=== PATIENT | female | born 1985 | race Hispanic/Latino ===

== ENCOUNTER 2018-07-11 18:34 | Emergency (ER) | payer OTHER ==
[2018-07-11 19:20] LABS: HCG,QUAL RESULT NEGATIVE (NEGATIVE)
[2018-07-11 19:21] LABS: APPEARANCE,URINE Clear (CLEAR); BILIRUBIN,URINE Negative (NEGATIVE); COLOR,URINE Yellow (YELLOW); GLUCOSE, URINE (UA) Negative (NEGATIVE); KETONES,URINE Negative (NEGATIVE); LEUKOCYTE ESTERASE ,URINE Small (NEGATIVE); NITRATE,URINE Negative (NEGATIVE); OCCULT BLOOD,URINE Moderate (NEGATIVE); PH,URINE 6.5 (5.0-8.0); PROTEIN,URINE Negative (NEGATIVE)
[2018-07-11 19:38] LABS: BACTERIA,URINE Rare /HPF (None Seen)
== END 2018-07-11 19:51 | disposition home or self-care (01) ==
LOC: EDH 18:34
DX: N39.0 Urinary tract infection, site not specified (principal); M54.5 Low back pain; G89.29 Other chronic pain; Z98.890 Other specified postprocedural states; Z72.0 Tobacco use
CPT/HCPCS: 81001; 81025

== ENCOUNTER 2021-04-25 18:35 | Emergency (ER) | payer OTHER ==
[~2021-04-25] VITALS: Ht 160 cm; Wt 83.9 kg
[2021-04-25 18:39] VITALS: BP 116/85
[2021-04-25 21:56] LABS: APPEARANCE,URINE Cloudy (CLEAR); BILIRUBIN,URINE Small (NEGATIVE); COLOR,URINE Dark Yellow (YELLOW); GLUCOSE, URINE (UA) Negative (NEGATIVE); KETONES,URINE 15 mg/dL (NEGATIVE); LEUKOCYTE ESTERASE ,URINE Large (NEGATIVE); NITRATE,URINE Positive (NEGATIVE); OCCULT BLOOD,URINE Moderate (NEGATIVE); PROTEIN,URINE POS 2+ mg/dL (NEGATIVE)
[2021-04-25 22:05] LABS: BACTERIA,URINE Moderate /HPF (None Seen); SQUAMOUS EPITHELIAL CELL,UR Few /HPF (0-2); WBC,URINE 26-50 /HPF (0-1)
[2021-04-25 22:06] LABS: TRANSITIONAL EPI CELLS,URINE Rare /HPF (None Seen)
[2021-04-25] MEDS ORDERED: DiphenhydrAMINE HCL 50 MG/ML VIAL IV ONE (22:30)
[2021-04-25] MEDS ORDERED: 0.9%NACL 1000ML 1,000 ML IV ONE (22:30)
[2021-04-25] MEDS ORDERED: CEFTRIAXONE 1G VIAL IV ONE (22:30)
[2021-04-25] MEDS ORDERED: KETOROLAC 15MG/ML VIAL (15MG/ML) IV ONE (22:30)
[2021-04-25] MEDS ORDERED: METOCLOPRAMIDE 10 MG/2 ML VIAL IVP ONE (22:30)
[2021-04-25] MEDS ORDERED: CEPH500B PO (22:39)
[2021-04-25] MEDS ORDERED: ONDA4TAB10 PO (22:39)
[2021-04-25] MEDS ORDERED: IBUP-2070 PO (22:39)
== END 2021-04-25 23:16 | disposition home or self-care (01) ==
LOC: EDH 18:35
DX: N39.0 Urinary tract infection, site not specified (principal); Z20.822 Contact with and (suspected) exposure to COVID-19; Z79.1 Long term (current) use of non-steroidal anti-inflammatories (NSAID)
CPT/HCPCS: 81001; 87077; 87088; 87186; 87635; 87804 ×2; 87880; 96374; 96375; 99284; C9803; J0696; J1200; J1885; J2765; J7030

== ENCOUNTER 2021-10-16 17:15 | Emergency (ER) | payer OTHER ==
[~2021-10-16] VITALS: Ht 162.6 cm; Wt 83.9 kg
[~2021-10-16 17:15] MED LIST: CEPH500B PO; IBUP-2070 PO; ONDA4TAB10 PO
[2021-10-16 17:19] VITALS: BP 132/53
[2021-10-16] MEDS ORDERED: DIPHENHYDRAMINE HCL 25 MG CAPSULE PO ONE (18:30)
[2021-10-16] MEDS ORDERED: FAMOTIDINE 20MG TAB PO ONE (18:30)
[2021-10-16] MEDS ORDERED: SOLU-MEDROL 125MG VIAL IM ONE (18:30)
[2021-10-16] MEDS ORDERED: FAMO-136 PO (18:38)
[2021-10-16] MEDS ORDERED: CETI1SOL17 PO (18:38)
[2021-10-16] MEDS ORDERED: PRED20TA3 PO (18:38)
== END 2021-10-16 18:48 | disposition home or self-care (01) ==
LOC: EDH 17:15
DX: L50.9 Urticaria, unspecified (principal); E66.9 Obesity, unspecified; Z68.31 Body mass index [BMI] 31.0-31.9, adult; Z79.1 Long term (current) use of non-steroidal anti-inflammatories (NSAID); Z79.52 Long term (current) use of systemic steroids
CPT/HCPCS: 99283; 96374; Q0163; J2930

== ENCOUNTER 2021-11-16 22:45 | Emergency (ER) | payer OTHER ==
[~2021-11-16] VITALS: Ht 160 cm; Wt 83.9 kg
[~2021-11-16 22:45] MED LIST changes: +CETI1SOL17 PO; +FAMO-136 PO; +PRED20TA3 PO
[2021-11-16 22:54] VITALS: BP 130/77
[2021-11-16] MEDS ORDERED: KETOROLAC 15MG/ML VIAL (15MG/ML) IV ONE (23:00)
[2021-11-16 23:01] LABS: BASOPHILS % (AUTO) 0.4 % (0.0-5.0); EOSINOPHILS % (AUTO) 0.9 % (0.0-8.0); HEMATOCRIT 42.6 % (36-48); LYMPHOCYTES % (AUTO) 15.7 % (21.0-51.0); MEAN CORPUSCULAR HEMOGLOBIN 27.9 pg (27.0-33.0); MEAN CORPUSCULAR VOLUME 79.6 fL (79-99); MONOCYTES % (AUTO) 4.8 % (3.0-13.0); NEUTROPHILS % (AUTO) 77.7 % (40.0-77.0); PLATELET COUNT (AUTO) 207 K/uL (130-400); RED BLOOD CELL COUNT(AUTO) 5.35 MIL/uL (4.00-5.50); RED CELL DISTRIBUTION WIDTH 12.5 % (11.0-15.5); WHITE BLOOD COUNT (AUTO) 10.9 K/uL (4.8-10.8)
[2021-11-16 23:11] LABS: CREATININE 0.9 mg/dL (0.5-1.5); POTASSIUM 3.3 mmol/L (3.5-5.1)
[2021-11-16 23:14] LABS: APPEARANCE,URINE CLEAR (CLEAR); BILIRUBIN,URINE NEGATIVE (NEGATIVE); COLOR,URINE YELLOW (YELLOW); GLUCOSE, URINE (UA) NEGATIVE (NEGATIVE); KETONES,URINE NEGATIVE (NEGATIVE); LEUKOCYTE ESTERASE ,URINE NEGATIVE (NEGATIVE); NITRATE,URINE NEGATIVE (NEGATIVE); OCCULT BLOOD,URINE TRACE-INTACT (NEGATIVE); PROTEIN,URINE NEGATIVE (NEGATIVE); UROBILINOGEN,URINE 0.2 mg/dL (0.2-1.0)
[2021-11-16 23:17] LABS: HCG,QUALITATIVE URINE NEGATIVE (NEGATIVE)
[2021-11-16 23:18] LABS: ALBUMIN 4.3 g/dL (3.5-5.0); TOTAL PROTEIN, SERUM 8.3 g/dL (6.0-8.3)
[2021-11-16 23:23] LABS: BACTERIA,URINE None Seen /HPF (None Seen); MUCUS,URINE Rare LPF (None Seen); RBC,URINE 0-1 /HPF (0-1); SQUAMOUS EPITHELIAL CELL,UR Few /HPF (0-2); WBC,URINE None Seen /HPF (0-1)
[2021-11-16] MEDS ORDERED: IBUP-2071 PO (23:33)
== END 2021-11-16 23:37 | disposition home or self-care (01) ==
LOC: EDH 22:45
DX: R07.89 Other chest pain (principal); R06.02 Shortness of breath; R00.2 Palpitations; E66.9 Obesity, unspecified; Z79.1 Long term (current) use of non-steroidal anti-inflammatories (NSAID); Z79.52 Long term (current) use of systemic steroids; F17.200 Nicotine dependence, unspecified, uncomplicated; Z68.32 Body mass index [BMI] 32.0-32.9, adult
CPT/HCPCS: 99285; 96374; 71045; 84484; 80053; 85025; 81001; 81025; 36415; 93005 ×2; J1885

== ENCOUNTER 2021-11-24 23:59 | Emergency (ER) | payer OTHER ==
[~2021-11-24] VITALS: Ht 160 cm; Wt 84.8 kg
[~2021-11-24 23:59] MED LIST changes: +IBUP-2071 PO
[2021-11-25 00:31] LABS: BASOPHILS % (AUTO) 0.3 % (0.0-5.0); EOSINOPHILS % (AUTO) 0.6 % (0.0-8.0); HEMATOCRIT 36.2 % (36-48); LYMPHOCYTES % (AUTO) 10.5 % (21.0-51.0); MEAN CORPUSCULAR HGB CONC 35.6 g/dL (32.0-36.0); MEAN CORPUSCULAR VOLUME 78.7 fL (79-99); MONOCYTES % (AUTO) 4.3 % (3.0-13.0); NEUTROPHILS % (AUTO) 83.8 % (40.0-77.0); PLATELET COUNT (AUTO) 255 K/uL (130-400); WHITE BLOOD COUNT (AUTO) 9.9 K/uL (4.8-10.8)
[2021-11-25 00:39] LABS: CREATININE 0.8 mg/dL (0.5-1.5); POTASSIUM 3.1 mmol/L (3.5-5.1)
[2021-11-25 00:43] LABS: APPEARANCE,URINE CLEAR (CLEAR); BILIRUBIN,URINE NEGATIVE (NEGATIVE); COLOR,URINE LIGHT-YELLOW (YELLOW); GLUCOSE, URINE (UA) NEGATIVE (NEGATIVE); HCG,QUALITATIVE URINE NEGATIVE (NEGATIVE); KETONES,URINE NEGATIVE (NEGATIVE); LEUKOCYTE ESTERASE ,URINE NEGATIVE Leu/uL (NEGATIVE); NITRATE,URINE NEGATIVE (NEGATIVE); OCCULT BLOOD,URINE LARGE (NEGATIVE); PROTEIN,URINE NEGATIVE (NEGATIVE); UROBILINOGEN,URINE 0.2 mg/dL (0.2-1.0)
[2021-11-25 00:49] LABS: ALBUMIN 3.4 g/dL (3.5-5.0); TOTAL PROTEIN, SERUM 7.5 g/dL (6.0-8.3)
[2021-11-25 00:53] LABS: MUCUS,URINE RARE LPF (None Seen); SQUAMOUS EPITHELIAL CELL,UR RARE /HPF (0-2)
[2021-11-25] MEDS ORDERED: METO25 PO (01:59)
[2021-11-25 02:10] VITALS: BP 120/66
== END 2021-11-25 02:14 | disposition home or self-care (01) ==
LOC: EDH 23:59
DX: R00.2 Palpitations (principal); R07.89 Other chest pain; E66.9 Obesity, unspecified; Z79.1 Long term (current) use of non-steroidal anti-inflammatories (NSAID); Z79.52 Long term (current) use of systemic steroids; Z68.33 Body mass index [BMI] 33.0-33.9, adult
CPT/HCPCS: 36415; 71045; 80053; 81001; 81025; 84484; 85025; 87088; 93005

== ENCOUNTER 2023-12-24 10:08 | Emergency (ER) | payer SELFPAY ==
[~2023-12-24] VITALS: Ht 160 cm; Wt 81.6 kg
[~2023-12-24 10:08] MED LIST changes: +METO25 PO; +ONDA-243 PO; -ONDA4TAB10 PO
[2023-12-24 10:11] VITALS: BP 133/95; PULSE 98; RESP 20; TEMP 100.4
[2023-12-24] MEDS ORDERED: IBUP-2077 PO (10:34)
[2023-12-24] MEDS ORDERED: CLIN-141 PO (10:34)
[2023-12-24] MEDS: ketOROlac 60 MG VIAL (30MG/ML) IM ONE (11:27)
== END 2023-12-24 11:33 | disposition home or self-care (01) ==
LOC: EDH 10:08
DX: K02.9 Dental caries, unspecified (principal); E66.9 Obesity, unspecified; Z98.890 Other specified postprocedural states; Z68.30 Body mass index [BMI] 30.0-30.9, adult
CPT/HCPCS: 99283; 96372; J1885

== ENCOUNTER 2024-06-04 23:16 | Emergency (ER) | payer SELFPAY ==
[~2024-06-04] VITALS: Ht 160 cm; Wt 83.9 kg
[~2024-06-04 23:16] MED LIST changes: +CLIN-141 PO; +IBUP-2077 PO
--- NOTE | 2024-06-04 23:19 | NUR ---
UA CUP PROVIDED
[2024-06-05 00:12] VITALS: TEMP 98.1
[2024-06-05 00:15] LABS: CREATININE 0.8 mg/dL (0.5-1.0); POTASSIUM 3.5 mmol/L (3.5-5.1)
[2024-06-05 00:46] LABS: BASOPHILS # (AUTO) 0.03 K/uL (0.00-0.20); BASOPHILS % (AUTO) 0.4 % (0.0-5.0); EOSINOPHILS # (AUTO) 0.06 K/uL (0.00-0.70); EOSINOPHILS % (AUTO) 0.8 % (0.0-8.0); HEMATOCRIT 38.8 % (36-48); IMMATURE GRANULOCYTE ABSOLUTE 0.01 K/uL (0-1); LYMPHOCYTES # (AUTO) 1.5 K/uL (1.0-4.8); LYMPHOCYTES % (AUTO) 18.9 % (21.0-51.0); MEAN CORPUSCULAR HEMOGLOBIN 29.9 pg (27.0-33.0); MEAN CORPUSCULAR HGB CONC 36.1 g/dL (32.0-36.0); MEAN CORPUSCULAR VOLUME 82.7 fL (79-99); MONOCYTES # (AUTO) 0.3 K/uL (0.1-1.0); MONOCYTES % (AUTO) 3.8 % (3.0-13.0); PLATELET COUNT (AUTO) 201 K/uL (130-400); RED BLOOD CELL COUNT(AUTO) 4.69 MIL/uL (4.00-5.50); RED CELL DISTRIBUTION WIDTH 12.3 % (11.0-15.5); WHITE BLOOD COUNT (AUTO) 7.9 K/uL (4.8-10.8)
[2024-06-05 01:29] LABS: B-TYPE NATRIURETIC PEPTIDE 5 pg/mL (0-100)
--- NOTE | 2024-06-05 01:39 | ERN ---
General Chief Complaint: Chest Pain Stated Complaint: CHEST PAIN , ANXIETY Time Seen by MD: 23:23 Time Seen by Midlevel: 23:23 Source: patient History of Present Illness Initial Comments Patient is a 39-year-old female with no significant past medical history presenting to the emergency department for evaluation of a generalized chest pain that started approximately 3 hours prior to arrival. Denies any shortness of breath, nausea, vomiting, diarrhea, or any other symptoms at this time. She does admit to a lot of personal stress over the last couple of days. Allergies: Coded Allergies: No Known Drug Allergies (Unverified Allergy, Unknown, 04/25/21) Home Meds Active Scripts Ibuprofen (Ibuprofen 800 mg Tab) 800 Mg Tab, 800 MG PO Q8H PRN for fever or pain, #30 TAB 0 Refills Prov:INOCENCIO NASH NP 12/24/23 Clindamycin HCl (Clindamycin HCl) 300 Mg Capsule, 1 CAP PO QID for 10 Days, #40 CAP 0 Refills Take two capsules for 1st dose, then take one capsule by mouth every 6 hours as directed until gone. Prov:INOCENCIO NASH NP 12/24/23 Metoprolol Tartrate (Lopressor) 25 Mg Tab, 25 MG PO BID, #60 TAB Prov:CHELY SHEEHAN MD 11/25/21 Ibuprofen (Ibuprofen) 800 Mg Tablet, 800 MG PO Q8H PRN for PAIN, #30 TAB 0 Refills Prov:JULIANNE CEJA MD 11/16/21 Cetirizine HCl (Zyrtec Syrup 1 mg/1 ml) 1 Mg/1 Ml Solution, 10 MG PO BID for 5 Days, #120 ML Prov:LINDA DC 10/16/21 Famotidine (Pepcid) 20 Mg Tablet, 20 MG PO BID for 15 Days, #30 TAB Prov:LINDA DC 10/16/21 Prednisone (Prednisone) 20 Mg Tablet, 40 MG PO DAILY for 5 Days, #10 TAB Prov:LINDA DC 10/16/21 Ibuprofen (Ibuprofen) 600 Mg Tablet, 600 MG PO Q6H PRN for PAIN, #15 TAB Prov:PALMA MARK 04/25/21 Ondansetron (Ondansetron Odt) 4 Mg Tab.rapdis, 4 MG PO Q12H, #15 TAB Prov:PALMA MARK SKEIN STRAIGHTENER 04/25/21 Cephalexin Monohydrate (Keflex) 500 Mg Cap, 500 MG PO QID for 7 Days, #28 CAP Prov:PALMA MARK SKEIN STRAIGHTENER 04/25/21 Past Medical History Past Medical History: Other Medical History Other: Obesity, ESBL Past Surgical History: Family History Family History: Negative Social History Social History: Negative Female( History) History: Not Applicable LMP: Apr 28, 2024 ROS Dictation CONSTITUTIONAL: Negative except for HPI HEAD/FACE: Negative except for HPI EENT: Negative except for HPI RESPIRATORY: Negative except for HPI GASTROINTESTINAL/ABDOMINAL: Negative except for HPI GENITOURINARY: Negative except for HPI MUSCULOSKELETAL: Negative except for HPI INTEGUMENTARY: Negative except for HPI NEUROLOGICAL/PSYCH: Negative except for HPI HEMATOLOGIC/LYMPHATIC: Negative except for HPI All Systems Negative, Except as noted above. 13 point review of systems assessed and all negative except for above. Physical Exam Physical Exam Dictation Vital Signs reviewed General Appearance: Alert, oriented x 3, no acute distress, well developed, nourished. Head and Face: non-traumatic. Eyes: PERRL, pink conjunctivas, eyelid no trauma, anterior chamber with arcus senilis. Ears: Pinnas intact and no signs of trauma or erythema ear canals clear and no discharge TM no erythema Nose: No discharge, no bleeding. Oropharynx: Mouth normal, tongue pink, pharynx clear,no erythema, tonsils no exudates, no abscesses noted, mucous membrane moist Neck: Supple, non-tender, no thyromegaly, no masses, no JVD, no bruits Breast:Deferred Chest:No tenderness, no crepitus, no paradoxical movement, no retractions Lungs:Clear, well-ventilated, symmetric, no rales, no wheezing, no rhonchi, no stridor, good breath sounds bilaterally Heart: Regular rate, regular rhythm, no murmur, no gallops Vascular: no peripheral edema, Abdomen: Soft, positive bowel sounds, nondistended, no guarding, nontender, no rebound, no masses no hepatomegaly, no splenomegaly, no Hester's sign, no hernias. Rectal: Deferred Genital: Deferred Neurological: Normal speech, motor function intact, sensory function intact Musculoskeletal: Neck nontender, full range of motion, back nontender, full range of motion, Extremities: nontender, full range of motion Skin: Color pink, dry, no turgor, no rash, no lacerations, no abrasions, no contusions. Lymphatic: Deferred Results Laboratory and Microbiology Lab and Micro Result Laboratory Tests Test 06/04/24 23:54 White Blood Count 7.9 K/uL (4.8-10.8) Red Blood Count 4.69 MIL/uL (4.00-5.50) Hemoglobin 14.0 g/dL (12.0-16.0) Hematocrit 38.8 % (36-48) Mean Corpuscular Volume 82.7 fL (79-99) Mean Corpuscular Hemoglobin 29.9 pg (27.0-33.0) Mean Corpuscular Hemoglobin Concent 36.1 g/dL (32.0-36.0) H Red Cell Distribution Width 12.3 % (11.0-15.5) Platelet Count 201 K/uL (130-400) Mean Platelet Volume 9.9 fL (7.5-10.5) Immature Granulocyte % (Auto) 0.1 % (0-1) Neutrophils (%) (Auto) 76.0 % (40.0-77.0) Lymphocytes (%) (Auto) 18.9 % (21.0-51.0) L Monocytes (%) (Auto) 3.8 % (3.0-13.0) Eosinophils (%) (Auto) 0.8 % (0.0-8.0) Basophils (%) (Auto) 0.4 % (0.0-5.0) Neutrophils # (Auto) 6.0 K/uL (1.8-7.7) Lymphocytes # (Auto) 1.5 K/uL (1.0-4.8) Monocytes # (Auto) 0.3 K/uL (0.1-1.0) Eosinophils # (Auto) 0.06 K/uL (0.00-0.70) Basophils # (Auto) 0.03 K/uL (0.00-0.20) Absolute Immature Granulocyte (auto 0.01 K/uL (0-1) Nucleated Red Blood Cells 0.0 % (0.0-0.19) Red Blood Cell Morphology See comments Sodium Level 142 mmol/L (136-145) Potassium Level 3.5 mmol/L (3.5-5.1) Chloride Level 105 mmol/L (101-111) Carbon Dioxide Level 31 mmol/L (21-32) Blood Urea Nitrogen 11 mg/dL (7-18) Creatinine 0.8 mg/dL (0.5-1.0) Glomerular Filtration Rate Calc 96 mL/min (>90) Random Glucose 91 mg/dL (70-105) Total Calcium 8.9 mg/dL (8.5-10.1) Total Creatine Kinase 167 U/L (21-232) Troponin I High Sensitivity 7 ng/L (4-50) B-Type Natriuretic Peptide 5 pg/mL (0-100) Labs Reviewed?: Yes MDM MDM: Patient is a 39-year-old female with no significant past medical history presenting to the emergency department for evaluation of a generalized chest pain that started approximately 3 hours prior to arrival. Denies any shortness of breath, nausea, vomiting, diarrhea, or any other symptoms at this time. She does admit to a lot of personal stress over the last couple of days. On physical examination the patient was in no acute distress. Cardiac workup was initiated. Initial EKG shows a normal sinus rhythm with a ventricular rate of 65 beats per minute. No ST elevations or bundle branch blocks noted. CBC and chemistries are unremarkable. Cardiac enzymes are negative. Patient has a heart score of 0. No EKG changes. Negative troponins. Low risk for ACS we will discharged home with outpatient follow up Differential diagnosis: ACS, anxiety, electrolyte abnormality There are no social concerns with this patient. Prescription drug management Prescriptions will include: None Medical management and examination interpretation discussions were had by me with other qualified healthcare professionals as indicated for the patient's care. ED Course Orders Procedure Category Date Status Time Vital Signs Per CPOE 06/04/24 Transmitted Routine 23:18 B-Type Natriuretic LAB 06/04/24 Complete Peptide 23:18 Chest 1vw RAD 06/04/24 Taken 23:18 12 Lead Ekg Tracing- EKG 06/04/24 Logged Technical 23:18 Oxygen By Nc/Pulse Ox CPOE 06/04/24 Transmitted 23:18 Maintain Iv CPOE 06/04/24 Transmitted 23:18 Iv Insertion CPOE 06/04/24 Transmitted 23:18 Cardiac Monitoring CPOE 06/04/24 Transmitted 23:18 Pulse Oximetry With CPOE 06/04/24 Transmitted Vs And Prn 23:18 Cbc With Differential LAB 06/04/24 Complete 23:18 Activity: Br W/Brp CPOE 06/04/24 Transmitted With Assist 23:18 Creatine Kinase, Total LAB 06/04/24 Complete 23:18 Troponin I High LAB 06/04/24 Complete Sensitivity 23:18 Urinalysis Profile LAB 06/04/24 Logged 23:18 Basic Metabolic Panel LAB 06/04/24 Complete 23:18 Vital Signs Date Time Temp Pulse Resp B/P (MAP) Pulse Ox O2 Delivery O2 Flow Rate FiO2 06/05/24 00:12 98.1 68 16 125/63 98 Room Air* 0 21 06/04/24 23:17 97.7 90 20 139/88 99 Room Air HEART Score Response (Comments) Value History: Low suspicion (0) 0 EKG: Normal 0 Age: < 45yrs (0) 0 Risk Factors: No known risk factors (0) 0 Initial Troponin: Normal limit (0) 0 HEART Score Risk: Low Risk for MACE (1-3) Total 0 DX & DISP Disposition: Discharge Departure Impression: Primary Impression: Non-cardiac chest pain Condition: Stable Additional Instructions: Your blood work today is unremarkable. Your EKG is normal and does not show any evidence of a heart attack. Your chest x-ray is normal. Your cardiac enzymes are negative. You are not anemic. Your kidney function is normal. Your electrolytes are normal. Please follow up with your primary care doctor in 2-3 days for repeat evaluation. If you develop any new or worsening symptoms please report to the ER for further evaluation. Referrals: SELF,REFERRAL (PCP) Time of Disposition: 01:38 I have reviewed the case, and I agree with, Diagnosis and Plan I performed the substantive portion of the visit. I have reviewed and personally made and approve the management plan that is documented in the note by myself or the MATILDA. I acknowledge for responsibility for the patient's management plan. YOGI EPSTEIN Jun 05, 2024 01:39
[2024-06-05 01:50] VITALS: BP 122/61; PULSE 62; RESP 16; O2SAT 98
--- NOTE | 2024-06-05 04:40 | EKG ---
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
--- NOTE | 2024-06-05 08:16 | HMCIMG ---
PORTABLE CHEST RADIOGRAPH INDICATION: CHEST PAIN COMPARISON: 11/25/2021 FINDINGS: Heart size is normal. The pulmonary vascularity and dianne appear normal. No abnormal pulmonary parenchymal opacity or consolidation identified. No significant pleural effusion noted. No pneumothorax detected. IMPRESSION: No radiographic evidence for any acute cardiopulmonary process.
== END 2024-06-05 01:51 | disposition home or self-care (01) ==
LOC: EDH 23:16
DX: R07.89 Other chest pain (principal); E66.9 Obesity, unspecified; F41.9 Anxiety disorder, unspecified; Z79.52 Long term (current) use of systemic steroids; Z79.899 Other long term (current) drug therapy; Z98.890 Other specified postprocedural states
CPT/HCPCS: 36415; 71045; 80048; 82550; 83880; 84484; 85025; 93005; 99285